=== PATIENT | female | born 1930 | race Caucasian/White ===

== ENCOUNTER 2017-05-11 09:02 | Emergency (ER) | payer OTHER ==
--- NOTE | 2017-05-11 09:15 | EDPHY ---
H & P Time Seen by Provider: 05/11/17 09:14 HPI/ROS: Chief complaint. Nosebleed HPI. 86-year-old female with nose bleed that started this morning. The bleeding was quite brisk in copious. She had some blood down the back of her throat but mainly it was coming out of the left nostril. She had a large clot that she was able to blow out. She had a similar nosebleed 1 week ago. She has had no recent trauma but she has had mild upper respiratory symptoms. She is not on blood thinners. No other bruising or unusual bleeding. ROS Constitutional. no fever/chills, no weakness Eyes. no problems with vision ENT. Nosebleed Cardiovascular. no chest pain Respiratory. no shortness of breath, no cough Abdominal. no abdominal pain, no nausea/vomiting, no diarrhea . no problems urinating MS. no calf pain/swelling, no neck/back pain, no joint pain Skin. no rash Lymph. no swollen glands Neuro. no headache, no dizziness, no difficulty walking or with speech Past Medical/Surgical History: Subdural hematoma, hypothyroid, hypertension, seizure disorderG tube Social History: , nonsmoker, no alcohol Smoking Status: Never smoked Physical Exam: General Appearance: Alert pleasant well-developed female mild distress vital signs are stable Eyes: Pupils equal and round no pallor or injection. ENT, no active bleeding but appears to be a scratch or abrasion on the left septum. No septal hematoma. Right nares appears normal Respiratory: There are no retractions, lungs are clear to auscultation. Cardiovascular: Regular rate and rhythm. Gastrointestinal: Abdomen is soft and nontender, no masses, bowel sounds normal. Neurological: Awake and alert, sensory and motor exams grossly normal. Skin: Warm and dry, no rashes. Musculoskeletal: Neck is supple nontender. Extremities symmetrical, full range of motion. Psychiatric: Patient is oriented X 3, there is no agitation. Constitutional: Initial Vital Signs Temperature (C) 36.6 C 05/11/17 09:05 Heart Rate 87 05/11/17 09:05 Respiratory Rate 19 05/11/17 09:05 Blood Pressure 132/88 H 05/11/17 09:05 O2 Sat (%) 93 05/11/17 09:05 O2 Delivery Mode Room Air Allergies/Adverse Reactions: No Known Allergies Allergy (Verified 05/11/17 09:03) Home Medications: Medication Instructions Recorded Acetaminophen [Tylenol 650/20.3ML 650 mg TUBE Q4 PRN #0 udcup 12/15/15 Oral Liq (*)] Polyethylene Glycol 3350 [Miralax 17 gm TUBE DAILY PRN #0 pkt 12/15/15 17 gm (*)] Sennosides [Senexon Oral Liquid] 17.6 mg TUBE BID #0 udl 12/15/15 Atorvastatin Calcium [Lipitor 20 20 mg PO DAILY #30 tab 12/29/15 mg (*)] Cholecalciferol Vit D3 [Vitamin D3 2,000 units PO DAILY #0 tab 12/29/15 (*)] Lacosamide [Vimpat 50 mg (*)] 50 mg PO DAILY #2 tab 12/29/15 Levothyroxine [Synthroid 50 mcg 50 mcg PO DAILY06 #30 tab 12/29/15 (*)] Lisinopril [Zestril 5 mg (*)] 5 mg PO DAILY #30 tab 12/29/15 levETIRAcetam [Levetiracetam] 1,000 mg PO BID #60 tablet 12/29/15 Cephalexin [Keflex (*)] 500 mg PO BID #10 cap 05/11/17 Medical Decision Making Procedures: Clots were removed from the nose by patient blowing. Inspection reveals the area on the septum of the left nares that appears to be the source of the bleeding. Afrin nasal spray is given to both nostrils. The nostrils are then packed with cotton balls soaked in cocaine solution. After removal no obvious source of bleeding identified. There was a small clot that was then removed. I put a 5.5 cm rhino rocket into the nose and inflated it with 2 mL of normal saline. Serial observations and the patient does not have any further bleeding either anteriorly or down the back of her throat ED Course/Re-evaluation: I consulted discussed case with Dr. Galloway who will see the patient in the office next week. I discussed the treatment plan including criteria for return importance of follow-up and further evaluation with the patient and her . They expressed understanding and agreement Differential Diagnosis: Anterior versus posterior epistaxis. Uncontrolled bleeding was considered. It appears that this is likely anterior epistaxis. Bleeding is now controlled in the emergency department with packing - Data Points Medications Given: Discontinued Medications Cocaine HCl (Cocaine Hcl) 1 tobin TP EDNOW ONE Stop: 05/11/17 09:21 Last Admin: 05/11/17 09:41 Dose: 1 tobin Oxymetazoline HCl (Afrin Nasal Leonidas) 2 sprays EACHNARE EDNOW ONE Stop: 05/11/17 09:22 Last Admin: 05/11/17 09:44 Dose: 2 spray Silver Nitrate/Potassium Nitrate (Silver Nitrate Applicator) 1 each TP EDNOW ONE Stop: 05/11/17 09:22 Last Admin: 05/11/17 09:43 Dose: 1 each Departure - Departure Disposition: Home, Routine, Self-Care Clinical Impression: Acute anterior epistaxis Condition: Good Instructions: Nosebleed (ED) Additional Instructions: Leave packing in over the weekend. Return for further bleeding. Caution with bending over to put your shoes on and instead sit down to put her shoes on. Cephalexin as antibiotic twice daily while you have your packing in. Call Dr. Galloway's office on Saturday morning to arrange follow-up and further evaluation on Saturday or Saturday. Referrals: Angela Vaughn MD [Primary Care Provider] - As per Instructions Jamal Galloway MD [Medical Doctor] - 2-3 days, call for appt. Prescriptions: Cephalexin [Keflex (*)] 500 mg PO BID #10 cap
[2017-05-11] MEDS ORDERED: COCAINE HCL 4% 4 ML BTL TP ONE (09:20)
[2017-05-11] MEDS ORDERED: SILVER NITRATE APPLICATOR 1 APPL TP ONE (09:21)
[2017-05-11] MEDS ORDERED: OXYMETAZOLINE 30 ML NASAL SPRAY EACHNARE ONE (09:21)
[2017-05-11 11:22] VITALS: BP 157/89; PULSE 63; RESP 14; O2SAT 92
[2017-05-11 11:47] VITALS: TEMP 97.5
== END 2017-05-11 11:46 | disposition home or self-care (01) ==
PROC: 2Y41X5Z Packing of Nasal Region using Packing Material (ICD-10-PCS; principal; 2017-05-11)
DX: R04.0 Epistaxis (principal); I10 Essential (primary) hypertension

== ENCOUNTER 2017-05-11 18:44 | Emergency (ER) | payer OTHER ==
[2017-05-11 18:51] VITALS: BP 144/83; PULSE 75; RESP 18; TEMP 98.4; O2SAT 92
--- NOTE | 2017-05-11 19:24 | EDPHY ---
H & P Time Seen by Provider: 05/11/17 18:59 HPI/ROS: CHIEF COMPLAINT: "spider bite" HISTORY OF PRESENT ILLNESS: The patient is an 86-year-old female who presents emergency department with possible spider bite. The patient was seen in the emergency department earlier today for an unrelated nosebleed. The patient states that she has had this "bug bite" for the past 2 days. She noticed it on her mid chest between her breasts. There is a small area of redness. She has been placing Neosporin on this. She was concerned that it was a "brown recluse " bite. Her and her have seen multiple spiders in the house. Patient denies any significant change in the size of the redness. No significant pain. No shortness of breath. No throat swelling. No other rash. The patient stated she had left facial pain but she feels this is secondary to the nasal packing. REVIEW OF SYSTEMS: My complete review of systems is negative except as mentioned in the HPI and decreased hearing. Past Medical/Surgical History: Includes subdural hematoma, hypothyroidism, hypertension, seizure disorder, epistaxis Social history: Smoking Status: Never smoked Physical Exam: Vitals noted GENERAL: Well-appearing, in no acute distress, alert. HEENT: Eyes normal to inspection, normal pharynx, no swelling, no signs of dehydration. The patient has nasal packing in her left nares. There is no facial redness or swelling. NECK: No thyromegaly, no lymphadenopathy, supple. RESPIRATORY: Clear to auscultation bilaterally, no rales, rhonchi or wheezing. CVS: Regular rate and rhythm, no rubs, murmurs, or gallops. Chest wall: There is a small quarter-size area of erythema intermittent chest between her breasts. This has a pattern consistent with dermatitis and irritation from skin rubbing. ABDOMEN: Soft, nontender, nondistended, no organomegaly. BACK: Normal to inspection, no CVA tenderness. SKIN: Normal color, no rash, warm, dry. No pallor. EXTREMITIES: No pedal edema, no calf tenderness, no Homans sign or cords, no joint swelling. NEURO/PSYCH: Alert and oriented, normal mood and affect, normal motor sensory exam. Constitutional: Initial Vital Signs Temperature (C) 36.9 C 05/11/17 18:48 Heart Rate 75 05/11/17 18:48 Respiratory Rate 18 05/11/17 18:48 Blood Pressure 144/83 H 05/11/17 18:48 O2 Sat (%) 92 05/11/17 18:48 O2 Delivery Mode Room Air Allergies/Adverse Reactions: No Known Allergies Allergy (Verified 05/11/17 18:51) Home Medications: Medication Instructions Recorded Acetaminophen [Tylenol 650/20.3ML 650 mg TUBE Q4 PRN #0 udcup 12/15/15 Oral Liq (*)] Polyethylene Glycol 3350 [Miralax 17 gm TUBE DAILY PRN #0 pkt 12/15/15 17 gm (*)] Sennosides [Senexon Oral Liquid] 17.6 mg TUBE BID #0 udl 12/15/15 Atorvastatin Calcium [Lipitor 20 20 mg PO DAILY #30 tab 12/29/15 mg (*)] Cholecalciferol Vit D3 [Vitamin D3 2,000 units PO DAILY #0 tab 12/29/15 (*)] Lacosamide [Vimpat 50 mg (*)] 50 mg PO DAILY #2 tab 12/29/15 Levothyroxine [Synthroid 50 mcg 50 mcg PO DAILY06 #30 tab 12/29/15 (*)] Lisinopril [Zestril 5 mg (*)] 5 mg PO DAILY #30 tab 12/29/15 levETIRAcetam [Levetiracetam] 1,000 mg PO BID #60 tablet 12/29/15 Cephalexin [Keflex (*)] 500 mg PO BID #10 cap 05/11/17 Hydrocortisone [Cortisone] 14 gm TP TID #1 cream..g. 05/11/17 Medical Decision Making ED Course/Re-evaluation: In the emergency department I discussed possible etiologies with the patient and her . Patient's skin lesion has been present for 2 days. I do not feel this is secondary to a brown recluse bite. Do not feel she is having an allergic reaction. This is not appear cellulitic. She is currently taking Keflex for her nasal packing. She will continue this medication. She will use cortisone cream. She will follow up with her doctor this week. She was given warnings prior to leaving. Differential Diagnosis: My differential includes but is not limited to dermatitis, fungal infection, cellulitis, abscess, insect bite, spider bite, foreign body, allergic reaction Departure - Departure Disposition: Home, Routine, Self-Care Clinical Impression: Skin lesion Condition: Good Instructions: Dermatitis (ED) Additional Instructions: Apply the cream prescribed. Return with increasing redness, pain, discharge, shortness of breath or any other concerns. Referrals: Angela Vaughn MD [Primary Care Provider] - 2-3 days, if not improved Prescriptions: Hydrocortisone [Cortisone] 14 gm TP TID #1 cream..g.
== END 2017-05-11 19:41 | disposition home or self-care (01) ==
DX: L98.9 Disorder of the skin and subcutaneous tissue, unspecified (principal); I10 Essential (primary) hypertension